=== PATIENT | female | born 1950 | race Caucasian/White ===

== ENCOUNTER 2017-01-11 19:53 | Emergency (ER) | payer MEDICARE ==
--- NOTE | ~2017-01-11 | ER ---
PATIENT'S NAME: TANJA LOPEZ [facility] AGE: 66 Y [address] ROOM: [place] [id number] LOCATION: ED ADMIT DATE: 01/11/2017 ER/Outpatient Report DISCHARGE DATE: 01/11/2017 FAMILY PHYSICIAN: Henok Sheffield MD ATTENDING PHYSICIAN: Amaris Reece Time of Arrival: 1953 hours. Time of Evaluation: 2000 hours. CHIEF COMPLAINT: Bilateral feet pain, wrist pain. HISTORY OF PRESENT ILLNESS: This is a 66-year-old female who presents to ER with her daughters. She states that she has history of rheumatoid arthritis and gout. She states she has had increased swelling to her bilateral lower feet for approximately a week. She states that she did see Dr. Dan yesterday. He gave her a shot of some sort of anti-inflammatory and started her on prednisone and gave her some [place] as well. The patient feels like her symptoms have not worsened. She has felt like her feet have gotten a little bit more swollen. She denies any chest pain. She states that she always feels some shortness of breath and that is not new for her. She has had no vomiting, but has had a little bit of diarrhea. She states she has had off and on diarrhea for quite some time. The patient denies any other problems at this time. ALLERGIES: NO KNOWN ALLERGIES. MEDICATIONS: Please see medication list and nurse's notes. PAST MEDICAL HISTORY: 1. Rheumatoid arthritis. 2. Gout. 3. Hypertension. 4. Tachycardia. PAST SURGERIES: Left knee replacement and hysterectomy. SOCIAL HISTORY: She quit smoking in 2010. Quit drinking in 2009. ROS: A 10-point review of systems was completed and was negative with the exception PATIENT'S NAME: TANJA LOPEZ [facility] AGE: 66 Y [address] ROOM: [place], [place] [id number] LOCATION: [facility] ADMIT DATE: 01/11/2017 ER/Outpatient Report DISCHARGE DATE: 01/11/2017 FAMILY PHYSICIAN: Henok Sheffield MD ATTENDING PHYSICIAN: Amaris Reece of those discussed in HPI. PHYSICAL EXAMINATION: VITAL SIGNS: Height 5 feet 2 inches stated, weight 61.3 kg taken, blood pressure is 155/76, pulse 71, respirations 20, temperature 97.7 degrees tympanically, saturations 98% on room air. Hannah Coma Score is 15. GENERAL: Alert, well-developed female, in no acute distress. HEENT: Head: Normocephalic. She does display moist mucous membranes. LUNGS: Clear to auscultation bilaterally. No wheezes or crackles. Normal respiratory effort. HEART: Regular rate and rhythm. No lifts, thrills, or murmurs. ABDOMEN: Soft, it is nontender. She has good bowel sounds throughout. No masses were palpated. EXTREMITIES: She does have 2+ pitting edema to lower extremities. She does have good pedal pulses bilaterally. There is no erythema, no induration, no warmth to the skin, no rash is noted. Her edema is from [place] down bilaterally. LABORATORY DATA AND X-RAYS: White count is 11.8, hemoglobin is 11.8, platelets are 286. INR is 1.0. CMS: Potassium is 3.3, BUN is 16, creatinine is 0.9. Estimated GFR is greater than 60. Magnesium is 1.7, CPK is 28, CK-MB is 1.2. Troponin I is less than 0.040, sedimentation rate is 22. CRP is 14.30. ProBNP is 2122. Uric acid is 6.0. EKG shows sinus rhythm. Chest x-ray shows cardiomegaly, no infiltrate was noted. IMPRESSION: 1. Bilateral lower extremity edema and pain. 2. Hypokalemia. 3. Elevated proBNP. 4. History of gout. 5. History of rheumatoid arthritis. ASSESSMENT AND PLAN: We did start an IV here in the emergency room. We did give her some morphine for her pain. We did give her 20 mEq of potassium p.o. here in the emergency room. All these things made her feel better. We will dismiss her to home. I am going to give her some Lasix 20 mg p.o. daily as well as have her continue her [place]. I advised her to try to use some compression socks to her legs to help get the swelling out and I would like her to follow up with her primary care physician tomorrow. The patient and the patient's daughter understand and agree with care. PATIENT'S NAME: TANJA LOPEZ [facility] AGE: 66 Y [address] ROOM: [place], [place] [address] LOCATION: [facility] ADMIT DATE: 01/11/2017 ER/Outpatient Report DISCHARGE DATE: 01/11/2017 FAMILY PHYSICIAN: Henok Sheffield MD ATTENDING PHYSICIAN: Amaris Reece JASMIN SOLIS PA-C FOR AMARIS REECE MD ACXimena/modl /[id number] d: 01/12/17 0445 t: 01/15/17 0644, OUTPATIENT REPORT
[2017-01-11 20:36] LABS: BASOPHIL % 0.3 %; EOSINOPHIL % 0.2 %; HEMATOCRIT 35.6 % (33.0-46.0); HEMOGLOBIN 11.8 g/dL (10.0-15.0); IMMATURE GRANULOCYTE # 0.4 K/uL (0.0-0.3); IMMATURE GRANULOCYTE % 3.5 %; LYMPHOCYTE # 0.9 K/uL (0.8-4.0); LYMPHOCYTE % 7.7 %; MCH 31.3 pg (27.0-34.0); MCHC 33.1 gm/dL (32.0-36.5); MCV 94.4 fl (83.0-98.0); MONOCYTE # 0.2 K/uL (0.0-1.0); MONOCYTE % 1.8 %; MPV 9.3 fl (9.4-12.4); NEUTROPHIL # (ANC) 10.2 K/uL (1.8-7.8); NEUTROPHIL % 86.5 %; NRBC % 0.2 /100WBC (0-0.00); PLATELET COUNT 286 K/uL (150-450); RBC 3.77 M/uL (3.50-5.50); RDW-CV 16.3 % (11.9-14.6); WBC 11.8 K/uL (4.0-11.0)
[2017-01-11 20:46] LABS: PROTIME 10.8 SECONDS (9.6-11.1); PTT 23 SECONDS (25-32)
[2017-01-11 20:55] LABS: ALBUMIN 2.3 gm/dL (3.5-5.0); ALK PHOS 133 IU/L (33-138); ALT 47 IU/L (12-78); ANION GAP 13.3 (10.0-19.0); AST 55 IU/L (10-40); BLOOD UREA NITROGEN 16 mg/dL (6-24); CHLORIDE 103 mMol/L (96-110); CO2 23 mMol/L (22-32); CPK 28 IU/L (21-215); CREATININE 0.9 mg/dL (0.5-1.1); ESTIMATED GFR (MDRD EQUATION) > 60; MAGNESIUM 1.7 mg/dL (1.3-2.6); POTASSIUM 3.3 mMol/L (3.7-5.1); SODIUM 136 mMol/L (135-145); TOTAL BILIRUBIN 0.4 mg/dL (0.0-1.5); TOTAL PROTEIN 5.7 g/dL (6.0-8.4)
[2017-02-24] MEDS ORDERED: ZYLOPRIM100 MG PO (14:12)
[2017-02-24] MEDS ORDERED: LIPITOR10 MG PO (14:12)
[2017-02-24] MEDS ORDERED: CYCLOBENZAPRINE5 MG PO (14:13)
[2017-02-24] MEDS ORDERED: ASPIRIN (CHILDR81 MG PO (14:13)
[2017-02-24] MEDS ORDERED: DULCOLAX10 MG R (14:14)
[2017-02-24] MEDS ORDERED: ELIQUIS2.5 MG (14:14)
[2017-02-24] MEDS ORDERED: FOLIC ACID1 MG PO (14:15)
[2017-02-24] MEDS ORDERED: ESTRACE(ESTRADIO1 MG PO (14:15)
[2017-02-24] MEDS ORDERED: FEOSOL325 MG PO (14:15)
[2017-02-24] MEDS ORDERED: LACTINEX (FLORA1 TAB PO (14:16)
[2017-02-24] MEDS ORDERED: MAG-OX-400(241400 MG PO (14:16)
[2017-02-24] MEDS ORDERED: LASIX80 MG PO (14:16)
[2017-02-24] MEDS ORDERED: METHOTREXATE2.5 MG PO (14:18)
[2017-02-24] MEDS ORDERED: TOPROL XL 5050 MG PO (14:19)
[2017-02-24] MEDS ORDERED: MILK OF MA400 MG/5 M PO (14:19)
[2017-02-24] MEDS ORDERED: NORCO 5-325 TA1 EACH PO (14:20)
[2017-02-24] MEDS ORDERED: DELTASONE5 MG PO (14:21)
[2017-02-24] MEDS ORDERED: PEPCID20 MG PO (14:21)
[2017-02-24] MEDS ORDERED: TYLENOL325 MG PO (14:22)
[2017-04-05] MEDS ORDERED: CYMBALTA60 MG PO (16:28)
[2017-04-05] MEDS ORDERED: LOTENSIN40 MG PO (16:28)
[2017-04-05] MEDS ORDERED: COLCHICINE0.6 MG PO (16:28)
[2017-04-05] MEDS ORDERED: K-TAB ER20 MEQ PO (16:29)
[2017-04-27] MEDS ORDERED: LANOXIN (DIGI125 MCG PO (13:16)
[2017-05-20] MEDS ORDERED: ARAVA20 MG PO (14:33)
[2017-06-07] MEDS ORDERED: OMEPRAZOLE40 MG PO (10:12)
== END 2017-01-11 21:52 | disposition disaster alternative care site (69) ==
LOC: GMED 19:53
PROVIDERS: Family Medicine
DX: R60.0 Localized edema (principal); E87.6 Hypokalemia; R79.89 Other specified abnormal findings of blood chemistry; M06.9 Rheumatoid arthritis, unspecified; I10 Essential (primary) hypertension; Z90.710 Acquired absence of both cervix and uterus
CPT/HCPCS: J2270

== ENCOUNTER → 2017-03-06 | Outpatient (CLI) | payer MEDICARE ==
[~2017-03-06] MED LIST: ARAVA20 MG PO; ASPIRIN (CHILDR81 MG PO; COLCHICINE0.6 MG PO; CYCLOBENZAPRINE5 MG PO; CYMBALTA60 MG PO; DELTASONE5 MG PO; DULCOLAX10 MG R; ELIQUIS2.5 MG; ESTRACE(ESTRADIO1 MG PO; FEOSOL325 MG PO; FOLIC ACID1 MG PO; K-TAB ER20 MEQ PO; LACTINEX (FLORA1 TAB PO; LANOXIN (DIGI125 MCG PO; LASIX80 MG PO; LIPITOR10 MG PO; LOTENSIN40 MG PO; MAG-OX-400(241400 MG PO; METHOTREXATE2.5 MG PO; MILK OF MA400 MG/5 M PO; NORCO 5-325 TA1 EACH PO; OMEPRAZOLE40 MG PO; PEPCID20 MG PO; PROBIOTIC1 EAC1 PO; TOPROL XL 5050 MG PO; TYLENOL325 MG PO; ZYLOPRIM100 MG PO
== END | disposition disaster alternative care site (69) ==
DX: R68.89 Other general symptoms and signs (principal)

== ENCOUNTER → 2017-05-23 | Outpatient (CLI) | payer MEDICARE ==
[2017-05-23 14:11] LABS: CREATININE 0.7 mg/dL (0.5-1.1)
== END | disposition disaster alternative care site (69) ==
LOC: GLAB 13:00 → GRAD 14:00
PROVIDERS: Nurse Practitioner Primary Care
DX: T81.89XA Other complications of procedures, not elsewhere classified, initial encounter (principal); I74.5 Embolism and thrombosis of iliac artery; I82.890 Acute embolism and thrombosis of other specified veins
CPT/HCPCS: Q9967

== ENCOUNTER 2017-06-10 06:47 | Outpatient (CLI) | payer MEDICARE ==
[~2017-06-10] VITALS: Ht 157.5 cm; Wt 45.5 kg
--- NOTE | ~2017-06-10 | OR ---
PATIENT'S NAME: TANJA LOPEZ [facility] AGE: 67 Y [address] ROOM: [place] [address] LOCATION: [facility] ADMIT DATE: 06/10/2017 OR/Procedure Report DISCHARGE DATE: 06/10/2017 FAMILY PHYSICIAN: Horacio Morin MD ATTENDING PHYSICIAN: Ramy Cho SURGEON: Ramy Cho MD PAROLE HEARING OFFICER: DATE OF PROCEDURE: 06/10/2017 PREOPERATIVE DIAGNOSIS: Critical limb ischemia of the right lower extremity. POSTOPERATIVE DIAGNOSIS: Critical limb ischemia of the right lower extremity. PROCEDURE: Right lower extremity angiogram with anterior tibial artery angioplasty and recanalization. MANAGER REVENUE: Miguel. ANESTHESIA: MAC, local. ESTIMATED BLOOD LOSS: 25 mL. OPERATIVE FINDINGS: Recanalization of the anterior tibial artery at end of case. DESCRIPTION OF PROCEDURE: The patient was brought to the microbiological lab technician, placed supine on the microbiological lab technician table, prepped and draped in a sterile manner. Preoperative time-out was performed. The patient received preoperative antibiotics. We performed an antegrade stick of the right lower extremity to divide it. 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 We used ultrasound guidance. We then used a micropuncture needle, followed by micropuncture wire, followed by a micropuncture sheath and exchanged using Seldinger technique for a 5-Arabic sheath. We then took a series of angiograms of the right lower extremity. It showed that the SFA and profunda were patent. The popliteal was patent. We then took our catheter down the anterior tibial vessels which showed that it had an abrupt occlusion right after its takeoff with recanalization distally. We used a 0.014 wire across this lesion. We then gave 5000 units of heparin. We then balloon angioplastied with a two and then finally by 3 x 150 balloon reopening the artery in its entirety. The patient had three normal three vessel runoff. We removed the removed the wire and the devices. We removed the sheath health held pressure for 5 minutes. Protamine was used to reverse 5000 units of heparin. The patient tolerated the procedure well and transferred to the recovery room home later that day. PATIENT'S NAME: TANJA LOPEZ [facility] AGE: 67 Y [address] ROOM: [place] [address] LOCATION: [facility] ADMIT DATE: 06/10/2017 OR/Procedure Report DISCHARGE DATE: 06/10/2017 FAMILY PHYSICIAN: Horacio Morin MD ATTENDING PHYSICIAN: Ramy Cho RAMY CHO MD FKM/modl /[id number] d: 06/10/17 2254 t: 06/16/17 1738, OPERATIVE SUMMARY
[~2017-06-10 06:47] MED LIST changes: -PROBIOTIC1 EAC1 PO
[2017-06-10] MEDS ORDERED: PROBIOTIC1 EAC1 PO (07:40)
--- NOTE | 2017-06-10 13:00 | NUR ---
06/10/17 S.1050 ON ARRIVAL TO ROOM 1031 FROM [facility]ICK EXTRUDER OPERATOR NOTED THAT HR WOULD DROP TO RATES OF 30. B. PATIENT S/P FOR PERHIPHERAL ANTIOGRAPHY. A.DR KHANNA NOTIFIED R.DR BEE CONSULTED AND CAME TO BEDSIDE. P. MEDICATION CHANGES PER DR BEE.
== END 2017-06-10 17:05 | disposition disaster alternative care site (69) ==
LOC: GCAT 06:47 → GPCU 06:47 → GCAT 07:00
PROC: B41FYZZ Fluoroscopy of Right Lower Extremity Arteries using Other Contrast (ICD-10-PCS; principal; 2017-06-10)
DX: I99.8 Other disorder of circulatory system (principal); R00.1 Bradycardia, unspecified
CPT/HCPCS: C1725; C1769; J0690; J1644; J2001; J2250; J2720; J3010; J7030